=== PATIENT | male | born 1950 | race Caucasian/White ===

== ENCOUNTER → 2016-11-23 | Outpatient (CLI) | payer OTHER ==
[~2016-11-23] MED LIST: ASPI-586 PO; HCTZ12.5T PO; HYDR-3062 PO; LISI1TAB PO; MULT1CAP27 PO; RT-ALBUTEROL SULF 2.5 MG/3 ML PRE-MIX VIAL INH ONE
--- NOTE | 2016-11-23 13:11 | Diagnostic Imaging Report ---
PA and lateral views of the chest Indication: Dyspnea Comparison 10/03/11 Findings: The lungs are clear. The heart size is normal. There is no effusion or pneumothorax The mediastinum and matthew appear unremarkable. Impression: Unremarkable study. Dictated by: Dictated on workstation # [id number]
== END ==
LOC: RT 12:33
PROVIDERS: ATTEND Internal Medicine
DX: R05 Cough (principal); R06.00 Dyspnea, unspecified
CPT/HCPCS: 71020; 94060; 94640; 94726

== ENCOUNTER 2016-11-28 14:06 | Outpatient (CLI) | payer OTHER ==
[~2016-11-28] VITALS: Ht 182.9 cm; Wt 119.7 kg
[~2016-11-28 14:06] MED LIST changes: -ASPI-586 PO; -HYDR-3062 PO; -MULT1CAP27 PO; -RT-ALBUTEROL SULF 2.5 MG/3 ML PRE-MIX VIAL INH ONE
[2016-11-28 14:13] VITALS: BP 156/94
[2016-11-28] MEDS ORDERED: MULT1CAP27 PO (14:21)
[2016-11-28] MEDS ORDERED: ASPI-586 PO (14:21)
== END 2016-11-28 14:40 | disposition home or self-care (01) ==
LOC: PREOP 14:06
PROVIDERS: ATTEND Surgery
DX: Z01.818 Encounter for other preprocedural examination (principal); Z11.2 Encounter for screening for other bacterial diseases; Z12.11 Encounter for screening for malignant neoplasm of colon; R22.32 Localized swelling, mass and lump, left upper limb
CPT/HCPCS: 87081

== ENCOUNTER 2016-11-28 14:15 | Outpatient (CLI) | payer OTHER ==
[2016-11-28] MEDS ORDERED: ASPI-586 PO (14:21)
[2016-11-28] MEDS ORDERED: MULT1CAP27 PO (14:21)
[2016-11-28 14:45] LABS: BASOPHILS # (AUTO) 0.1 10^3/uL (0.0-0.1); BASOPHILS % (AUTO) 0 % (0-10); EOSINOPHILS # (AUTO) 0.3 10^3/uL (0.0-0.3); EOSINOPHILS % (AUTO) 3 % (0-10); LYMPHOCYTES # (AUTO) 4.7 X 10^3 (1.0-4.0); LYMPHOCYTES % (AUTO) 38 % (12-44); MEAN CORPUSCULAR HEMOGLOBIN 30 PG (25-34); MEAN CORPUSCULAR HGB CONC 34 G/DL (32-36); MEAN CORPUSCULAR VOLUME 88 FL (80-99); MEAN PLATELET VOLUME 11.4 FL (7.4-10.4); MONOCYTES % (AUTO) 8 % (0-12); NEUTROPHILS # (AUTO) 6.4 X 10^3 (1.8-7.8); NEUTROPHILS % (AUTO) 52 % (42-75); PLATELET COUNT 174 10^3/uL (130-400); RED BLOOD COUNT 5.16 10^6/uL (4.35-5.85); RETICULOCYTE % 1.26 % (0.50-2.40); WHITE BLOOD COUNT 12.4 10^3/uL (4.3-11.0)
[2016-11-28 14:59] LABS: BAND NEUTROPHILS 0 %; BASOPHILS % (MANUAL) 0 %; EOSINOPHILS % (MANUAL) 3 %; LYMPHOCYTES % (MANUAL) 45 %; NEUTROPHILS % (MANUAL) 48 %
[2016-11-29 07:26] LABS: PATH WILL NEED TO REVIEW SMEAR PATH TO REVIEW
== END 2016-11-28 14:40 | disposition home or self-care (01) ==
LOC: LAB 14:15
PROVIDERS: ATTEND Internal Medicine
DX: D72.9 Disorder of white blood cells, unspecified (principal)
CPT/HCPCS: 36415; 85007; 85027; 85045

== ENCOUNTER 2016-12-01 08:24 | Day surgery (SDC) | payer OTHER ==
[~2016-12-01] VITALS: Ht 182.9 cm; Wt 119.7 kg
[~2016-12-01 08:24] MED LIST changes: +ASPI-586 PO; +MULT1CAP27 PO
--- OUTSIDE RECORDS SUMMARY | 2016-12-01 08:27 | XMS REPORT | Continuity of Care Document ---
Author Author [facility] Organization [facility] Address Unknown Phone Unavailable Care Team Providers Care Mergers And Acquisitions Manager Name Role Phone SONDRA GONZALES MD PCP Insurance Providers Payer Name Policy Number Subscriber Name Relationship [employer] [place] [id number] Meri Duckworth Matthew 01 Advance Directives Directive Response Recorded Date/Time Advance Directives No 10/03/11 2:09pm Health Care Power of Surveyor Geophysical Prospecting No 10/03/11 2:09pm Organ Donor No 10/03/11 2:09pm Problems No problem information available. Medications Current Home Medications Medication Dose Units Route Directions Days/Qty Instructions Start Date Hctz/Lisinopril (Zestoretic) 1 Each 2 Each Oral Daily 10/04/11 Aspirin 81 Mg 81 Mg Oral Daily 11/28/16 Multivitamin 1 Each 1 Each Oral Daily 11/28/16 Past Home Medications Medication Directions Ordered Status Hydrochlorothiazide 12.5 Mg Cap, 12.5 Mg Oral Daily 10/03/11 Discontinued Social History Social History Problem Response Recorded Date/Time Recent Foreign Travel No 11/28/2016 2:14pm Hospital Discharge Instructions No hospital discharge instructions. Plan of Care Discharge Date 11/28/16 2:40pm Prescriptions See Medication Section Functional Status No functional status results. Allergies, Adverse Reactions, Alerts Allergen Type Severity Reaction Status Last Updated Calamine Allergy Active 10/03/11 Immunizations No immunization records. Vital Signs Acute Vital Signs Vital Response Date/Time Pulse Rate (adult) 82 bpm (60 - 90) 11/28/2016 2:13pm O2 Sat by Pulse Oximetry 97 % (88 - 100) 11/28/2016 2:13pm Blood Pressure 156/94 mm Hg 11/28/2016 2:13pm Blood Pressure Mean 114 mm Hg 11/28/2016 2:13pm Pain Numeric Pain Scale 2 11/28/2016 2:13pm Height (Feet) 6 feet 11/28/2016 2:11pm Height (Inches) 0.00 inches 11/28/2016 2:11pm Height (Calculated Centimeters) 182.920981 cm 11/28/2016 2:11pm Weight (Pounds) 264 pounds 11/28/2016 2:11pm Weight (Ounces) 0.0 oz 11/28/2016 2:11pm Weight (Calculated Grams) 892919.39 gm 11/28/2016 2:11pm Weight (Calculated Kilograms) 119.719460 kilograms 11/28/2016 2:11pm Calculated BMI 35.8 11/28/2016 2:11pm Results No known relevant diagnostic tests, laboratory data and/or discharge summary. Procedures No known history of procedures. Encounters Encounter Location Arrival/Admit Date Discharge/Depart Date Attending Provider Departed Clinic [facility] 11/28/16 2:15pm 11/28/16 2: 40pm SONDRA GONZALES MD Departed Clinic [facility] 11/28/16 2:06pm 11/28/16 2: 40pm CARRILLO MARTIN DO Registered Clinic [facility] 11/23/16 12:33pm SONDRA GONZALES MD
--- OUTSIDE RECORDS SUMMARY | 2016-12-01 08:27 | XMS REPORT | Continuity of Care Document ---
Author Author [facility] Organization [facility] Address Unknown Phone Unavailable Care Team Providers Care Physician Support Coordinator Name Role Phone SONDRA GONZALES MD PCP Insurance Providers Payer Name Policy Number Subscriber Name Relationship [employer] [place] [id number] Meri Duckworth Matthew 01 Advance Directives Directive Response Recorded Date/Time Advance Directives No 10/03/11 2:09pm Health Care Power of Security Systems Technician No 10/03/11 2:09pm Organ Donor No 10/03/11 [...] 0.00 inches 11/28/2016 2:11pm Height (Calculated Centimeters) 182.146139 cm 11/28/2016 2:11pm Weight (Pounds) 264 pounds 11/28/2016 2:11pm Weight (Ounces) 0.0 oz 11/28/2016 2:11pm Weight (Calculated Grams) 360554.39 gm 11/28/2016 2:11pm Weight (Calculated Kilograms) 119.174499 kilograms 11/28/2016 2:11pm Calculated BMI 35.8 11/28/2016 2:11pm Results No known relevant diagnostic tests, laboratory data and/or discharge summary. Procedures No known history of procedures. Encounters Encounter Location Arrival/Admit Date Discharge/Depart Date Attending Provider Departed Clinic [facility] 11/28/16 2:15pm 11/28/16 2: 40pm SONDRA GONZALES MD Departed Clinic [facility] 11/28/16 2:06pm 11/28/16 2: 40pm CARRILLO MARTIN DO Registered Clinic [facility] 11/23/16 12:33pm SONDRA GONZALES MD
[2016-12-01] MEDS ORDERED: ceFAZolin 2 GM/NS 50 ML IVPB IV ONE ×2 (08:45)
[2016-12-01] MEDS ORDERED: MUPIROCIN 2% OINT 22 GM (BACTROBAN) TUBE NSEACH SCH (09:00)
[2016-12-01] MEDS ORDERED: LIDOCAINE 1% INJ 20 ML (XYLOCAINE) VIAL ONE (09:07)
[2016-12-01] MEDS ORDERED: BUPIVACAINE 0.5% 30 ML (SENSORCAINE) VIAL ONE (09:07)
[2016-12-01] MEDS ORDERED: fentaNYL INJECTION 100 MCG/2 ML AMP ONE (09:12)
[2016-12-01] MEDS ORDERED: MIDAZOLAM 2 MG/2 ML (VERSED) VIAL ONE (09:12)
[2016-12-01] MEDS ORDERED: proPOfol 200 MG/20 ML (DIPRIVAN) VIAL IV ONE (09:12)
[2016-12-01 09:16] VITALS: BP 140/88
[2016-12-01] MEDS: LACTATED RINGERS 1,000 ML IV PRN ×2 (09:18→10:45)
--- NOTE | 2016-12-01 09:28 | Progress Note-Pre Operative ---
Pre-Operative Progress Note H&P Reviewed The H&P was reviewed, patient examined and no changes noted. Date H&P Reviewed: Dec 01, 2016 Time H&P Reviewed: 09:00 Pre-Operative Diagnosis: left back mass, screening colonoscopy CARRILLO MARTIN DO Dec 01, 2016 09:28
[2016-12-01] MEDS ORDERED: LACTATED RINGERS 2,000 ML IV ONE (10:17)
[2016-12-01] MEDS ORDERED: ONDANSETRON 4 MG/2 ML (SDV) Z0FRAN ONE (10:17)
[2016-12-01] MEDS ORDERED: PHENYLEPHRINE 100 MCG/ML 10 ML (ANESTHESIA) SYR ONE (10:17)
[2016-12-01] MEDS ORDERED: SEVOFLURANE (ULTANE) 15 ML INHAL SOLN ONE (10:18)
[2016-12-01] MEDS ORDERED: HYDR-3062 PO (10:30)
--- NOTE | 2016-12-01 10:34 | Discharge Inst-Simple/Standard ---
Discharge Inst-Standard Discharge Medications New, Converted or Re-Newed RX: RX on Chart Patient Instructions/Follow Up Plan of Care/Instructions/FU: Follow up for suture removal in about 12-[address] Douglas's office. Will need another colonoscopy in 6 months. Activity as Tolerated: No Discharge Diet: No Restrictions Other Inst to Patient Follow up Appt: Make appointment for 12-14 days. Instructions: No lifting greater than 10 pounds. No strenuous activity. May shower in 24 hours, no tub bath or soaking. Use incentive spirometer at home as directed. No Smoking Skin/Wound Care: May remove bandages. Keep wound clean and dry. Symptoms to Report: Appetite Changes, Extremity Discoloration, Numbness/Tingling, Swelling Increased , Bleeding Excessive, Eyesight Changes, Pain Increased, Urine Color Change, Constipation(Persistent), Fever over 101 degree F, Pain/Pressure in chest, Urinating Difficulty, Cough Up/Vomit Blood, Heart Beat Irreg/Pounding, Pain/ Pressure in jaw, Vaginal Bleeding Increase, Cramps in feet or legs, Lightheadedness, Pain/Pressure in shoulder, Diarrhea(Persistent), Memory Changes Suddenly, Questions/Concerns, Weight gain consecutive days, Dizziness/ Fainting, Nausea/Vomiting, Shortness of Breath, Weight gain over 2 pounds If questions or concerns contact your physician Or seek help at emergency department. MADISYN RAND APRN Dec 01, 2016 10:34
--- NOTE | 2016-12-01 10:54 | Progress Note-Post Operative ---
Post-Operative Progess Note Pre-Operative Diagnosis LEFT SHOULDER MASS, SCREENING COLONOSCOPY Post-Operative Diagnosis lipoma left shoulder, colon polyps Post-Op Procedure Note Date of Procedure: Dec 01, 2016 Name of Procedure: colonoscopy with hot bx polypectomy x 3 and snare polypectomy x 1 Procedure Note/Findings see note Anesthesia Type general Estimated blood loss (mL): minimal Specimen(s) collected lipoma and colon polyps CARRILLO MARTIN DO Dec 01, 2016 10:54
[2016-12-01 11:50] VITALS: BP 143/80
[2016-12-01 12:20] VITALS: BP 165/89
[2016-12-01 12:50] VITALS: BP 143/96
--- NOTE | 2016-12-02 09:19 | OPERATIVE REPORT ---
PROCEDURE PHYSICIAN: CARRILLO MARTIN DATE OF PROCEDURE: 12/01/2016 PREOPERATIVE DIAGNOSIS: 1. Back mass 2. Screening colonoscopy. POSTOPERATIVE DIAGNOSIS: 1. Left upper back lipoma. 2. Colon polyps. 3. Diverticulosis. SURGEON: Stella. ANESTHESIA: General. ESTIMATED BLOOD LOSS: Minimal. COMPLICATIONS: None. INDICATIONS: The patient is a 66-year-old male who has not had screening colonoscopy. He understands the risk and benefits of colonoscopy. He also has a back mass which has continued to increase in size and causes discomfort. He wishes to have this excised. He understands the risks, benefits and wishes to proceed. Consent was signed on the chart. PROCEDURE: The patient was taken operative suite, he was prepped and draped in the sterile fashion. A surgical pause was performed. Total of 10 mL of 0.50% Marcaine, 1% lidocaine was infiltrated in the subcutaneous tissues around the left upper back over the palpable mass. 15 blade scalpel was used to make an incision. Cautery was used to dissect down to the deep subcutaneous tissues. This was dissected and taken all the way down to the trapezius muscle. The lipoma was able to be dissected around bluntly and cautery was used to dissect adhesions attached to it and remove. The overall measuring was 6 x 4 x 2 cm. The wound was then irrigated with copious amounts of irrigation. The deep subcutaneous layers were reapproximated using 3-0 Vicryl. The skin was then closed using a 3-0 nylon in a simple interrupted fashion. The area was then washed and dried and sterile bandages were applied. The patient was then repositioned for colonoscopy. COLONOSCOPY: Digital rectal exam was performed. There were no palpable polyps, masses or ulcerations. The scope was inserted in the rectum and advanced all of the way to the cecum. There was quite significant amount of liquid and some formed stool still present. Lots of irrigation and suction was performed and the scope was inserted all the way to the cecum without difficulty. There were no polyps, masses, ulcerations within the cecum. There were no polyps, masses, ulcerations within the ascending colon. Within the transverse colon, a small polyp was noted and hot biopsy polypectomy was performed. The scope was continued to be slowly retracted back. Again in the descending colon the patient had a moderate diverticulosis present all the way down to the sigmoid colon. Within the sigmoid colon there was also another small polyp, which hot biopsy polypectomy was performed. At the proximal rectum, there is more of a pedunculated polyp with snare polypectomy was performed. The scope was also retroflexed noting no another polyp in the distal rectum, which hot biopsy polypectomy was performed. The scope was returned to its normal position and slowly withdrawn until completely removed. The patient tolerated procedure well without complications and taken to recovery room in stable condition. RECOMMENDATIONS: The patient will follow-up in 12 to 14 days to have his sutures removed and discuss pathology results. I would recommend repeating colonoscopy in approximately 6 months for reevaluation due to patient having a slightly poor prep. Would recommend probably a 2 day prep prior but also due to the larger polyp which had to be snared which was slightly greater than 1 cm and multiple other polyps. Job ID: [id number] Dictated Date: 12/01/2016 10:59:54 Retail Office Associate Date: 12/02/2016 08:51:28 / renato
== END 2016-12-01 12:57 | disposition home or self-care (01) ==
LOC: SDC 08:24
PROVIDERS: ATTEND Surgery
DX: Z12.11 Encounter for screening for malignant neoplasm of colon (principal); K63.5 Polyp of colon; D12.8 Benign neoplasm of rectum; K57.30 Diverticulosis of large intestine without perforation or abscess without bleeding; D17.1 Benign lipomatous neoplasm of skin and subcutaneous tissue of trunk
CPT/HCPCS: 87081

== ENCOUNTER → 2017-11-22 | Outpatient (CLI) | payer OTHER ==
[~2017-11-22] MED LIST changes: +HYDR-3062 PO
[2017-11-22 14:42] LABS: BASOPHILS # (AUTO) 0.1 10^3/uL (0.0-0.1); BASOPHILS % (AUTO) 1 % (0-10); EOSINOPHILS # (AUTO) 0.3 10^3/uL (0.0-0.3); EOSINOPHILS % (AUTO) 2 % (0-10); HEMATOCRIT 48 % (40-54); HEMOGLOBIN 16.7 G/DL (13.3-17.7); LYMPHOCYTES # (AUTO) 4.6 X 10^3 (1.0-4.0); LYMPHOCYTES % (AUTO) 33 % (12-44); MEAN CORPUSCULAR HEMOGLOBIN 30 PG (25-34); MEAN CORPUSCULAR HGB CONC 35 G/DL (32-36); MEAN CORPUSCULAR VOLUME 86 FL (80-99); MEAN PLATELET VOLUME 11.8 FL (7.4-10.4); MONOCYTES # (AUTO) 1.3 X 10^3 (0.0-1.0); MONOCYTES % (AUTO) 9 % (0-12); NEUTROPHILS # (AUTO) 7.5 X 10^3 (1.8-7.8); NEUTROPHILS % (AUTO) 55 % (42-75); PLATELET COUNT 184 10^3/uL (130-400); RED BLOOD COUNT 5.58 10^6/uL (4.35-5.85); RED CELL DISTRIBUTION WIDTH 14.8 % (10.0-14.5); WHITE BLOOD COUNT 13.7 10^3/uL (4.3-11.0)
--- NOTE | 2017-11-22 15:05 | Diagnostic Imaging Report ---
INDICATION: Shortness of breath on exertion. TIME OF EXAM: 2:49 PM Correlation is made with prior study from 11/23/2016. FINDINGS: The heart size is normal. The lungs are clear. No pleural effusion or pneumothorax is identified. The pulmonary vascularity is normal. IMPRESSION: No acute abnormality detected. Dictated by: Dictated on workstation # [id number]
[2017-11-22 15:08] LABS: ALBUMIN 4.3 GM/DL (3.2-4.5); BILIRUBIN,TOTAL 0.3 MG/DL (0.1-1.0); CALCIUM 9.7 MG/DL (8.5-10.1); CREATININE SERUM 1.23 MG/DL (0.60-1.30); POTASSIUM 4.3 MMOL/L (3.6-5.0); TOTAL PROTEIN 7.4 GM/DL (6.4-8.2)
== END ==
LOC: RAD 14:06
PROVIDERS: ATTEND Internal Medicine
DX: R06.02 Shortness of breath (principal)
CPT/HCPCS: 36415; 71046; 80053; 80061; 83036; 84443; 85025